=== PATIENT | female | born 1995 | race Caucasian/White ===

== ENCOUNTER 2016-06-07 11:18 | Emergency (ER) | payer OTHER ==
[2016-06-07 12:53] VITALS: BP 103/55
--- NOTE | 2016-06-07 13:12 | UC ---
Complaint Female HPI - HPI Summary HPI Summary: The patient comes in today for: 1. Dysuria: Onset: Yesterday. Palliative/provocative: Hot pack on the stomach can help. Quality: Dysuria, and pressure. Region: Suprapubic pressure. Severity: 6/10 with urination. Time: Constant pressure. Associated symptoms: Back pain: None. Fevers: None. Urinary frequency: Present. Urinary urgency: Yes. Last UTI: 6 months ago. Recent antibiotics: None. * - History Of Current Complaint Chief Complaint: UCGU Stated Complaint: URINARY COMPLAINT Time Seen by Provider: 06/07/16 13:02 Hx Obtained From: Patient Hx Last Menstrual Period: 05/11/16 ?: No - Allergies/Home Medications Allergies/Adverse Reactions: Allergies Allergy/AdvReac Type Severity Reaction Status Date / Time No Known Allergies Allergy Verified 06/07/16 12:49 PMH/Surg Hx/FS Hx/Imm Hx Previously Healthy: No Endocrine History Of: Denies: Diabetes, Thyroid Disease, Hyperthyroidism, Hypothyroidism, Dyslipidemia Cardiovascular History Of: Reports: Cardiac Disorders - VSD Denies: Hypertension, Pacemaker/ICD, Myocardial Infarction, Congestive Heart Failure, Atrial Fibrillation, Deep Vein Thrombosis, Bleeding Disorders Respiratory History Of: Denies: COPD, Asthma, Bronchitis, Pneumonia, Pulmonary Embolism GI/ History Of: Denies: Gastroesophageal Reflux, Ulcer, Gastrointestinal Bleed, Gall Bladder Disease, Kidney Stones, Diverticulitis, Renal Disease, Urosepsis Neurological History Of: Denies: TIA, CVA, Dementia, Seizures, Migraine Psychological History Of: Reports: Anxiety - On no medications. Denies: Depression, Bipolar Disorder, Schizophrenia, Post Traumatic Stress Disorder Cancer History Of: Denies: Lung Cancer, Colorectal Cancer, Breast Cancer, Prostate Cancer, Cervical Cancer Other History Of: Negative For: HIV, Hepatitis B, Hepatitis C, Anticoagulant Therapy - Surgical History Surgical History: Yes Surgery Procedure, Year, and Place: TUBES EARS. RIGHT WRIST FX REPAIR - Family History Known Family History: Negative: Cardiac Disease, Hypertension - Social History Occupation: Employed Full-time Alcohol Use: Rare Substance Use Type: None Smoking Status (MU): Never Smoked Tobacco - Immunization History Most Recent Influenza Vaccination: February 2016 Review of Systems Constitutional: Negative Skin: Negative Eyes: Negative ENT: Negative Respiratory: Negative Cardiovascular: Negative Gastrointestinal: Abdominal Pain Genitourinary: Dysuria, Frequency, Urgency All Other Systems Reviewed And Are Negative: Yes Physical Exam Triage Information Reviewed: Yes Appearance: Well-Appearing, No Pain Distress, Well-Nourished Vital Signs: Initial Vital Signs Temp 98.7 F 06/07/16 12:46 Pulse 70 06/07/16 12:46 Resp 16 06/07/16 12:46 BP 103/55 06/07/16 12:46 Pulse Ox 100 06/07/16 12:46 Vital Signs Reviewed: Yes Eyes: Positive: Conjunctiva Clear. Negative: Discharge ENT: Positive: Hearing grossly normal. Negative: Pharyngeal erythema, Nasal congestion, Nasal drainage, TM bulging, TM dull, TM red, Tonsillar swelling, Tonsillar exudate Dental: Negative: Gross Decay/Caries @, Dental Fracture @ Neck: Positive: Supple, Nontender, No Lymphadenopathy. Negative: Nuchal Rigidity Respiratory: Positive: Chest non-tender, Lungs clear, No respiratory distress, No accessory muscle use. Negative: Crackles, Wheezing Cardiovascular: Positive: RRR, No Murmur Abdomen Description: Positive: No Organomegaly, Soft. Negative: Nontender - Very mild suprapubic tenderness., CVA Tenderness (R), CVA Tenderness (L), Distended, Guarding, Peritoneal Signs, Pulsatile Mass Musculoskeletal: Positive: Strength Intact, ROM Intact, No Edema Neurological: Positive: Alert, Muscle Tone Normal Psychological: Positive: Age Appropriate Behavior, Consolable Skin: Negative: rashes, breakdown Complaint Female Dx - Differential Dx/Diagnosis Differential Diagnosis/HQI/PQRI: Renal Colic, Urinary Tract Infection Provider Diagnoses: Urinary tract infection. Discharge - Discharge Plan Condition: Stable Disposition: HOME Patient Education Materials: Urinary Tract Infection in Women (ED) Referrals: No Primary Care Phys,NOPCP [Primary Care Provider] - 1 Week (Please see your primary care provider in about a week. If you don't have a primary care provider, please reference the included sheet of local provider. If you get worse, please be seen sooner.)
== END 2016-06-07 13:27 | disposition home or self-care (01) ==
LOC: UCCORT 11:18
DX: N39.0 Urinary tract infection, site not specified (principal)
CPT/HCPCS: 81025; 87086; 99212; G0463

== ENCOUNTER 2016-07-06 16:01 | Emergency (ER) | payer OTHER ==
[2016-07-06 16:24] VITALS: BP 119/73
--- NOTE | 2016-07-06 16:34 | UC ---
Throat Pain/Nasal Jony HPI - HPI Summary HPI Summary: complaint of sore throat and headache that started today headche worsened and work today- headache in entire head- photphiobic - nausea fever started today denies cough ,runny nose, ear pain feels nauseated - able to drink fluids took 600 mg of ibuprofen approx 4:00 without relief works as a tech in the ED - History of Current Complaint Chief Complaint: UCGeneralIllness Stated Complaint: HEADACHE/FEVER Time Seen by Provider: 07/06/16 16:26 Hx Obtained From: Patient Hx Last Menstrual Period: 06/10/16 - Allergies/Home Medications Allergies/Adverse Reactions: Allergies Allergy/AdvReac Type Severity Reaction Status Date / Time No Known Allergies Allergy Verified 07/06/16 16:23 Home Medications: Home Medications Ibuprofen TAB* [Motrin TAB* 600 MG] 600 mg PO Q8H PRN 07/06/16 [History Confirmed 07/06/16] PMH/Surg Hx/FS Hx/Imm Hx Previously Healthy: Yes Endocrine History Of: Denies: Diabetes, Thyroid Disease, Hyperthyroidism, Hypothyroidism, Dyslipidemia Cardiovascular History Of: Reports: Cardiac Disorders - VSD Denies: Hypertension, Pacemaker/ICD, Myocardial Infarction, Congestive Heart Failure, Atrial Fibrillation, Deep Vein Thrombosis, Bleeding Disorders Respiratory History Of: Denies: COPD, Asthma, Bronchitis, Pneumonia, Pulmonary Embolism GI/ History Of: Denies: Gastroesophageal Reflux, Ulcer, Gastrointestinal Bleed, Gall Bladder Disease, Kidney Stones, Diverticulitis, Renal Disease, Urosepsis Neurological History Of: Denies: TIA, CVA, Dementia, Seizures, Migraine Psychological History Of: Reports: Anxiety - On no medications. Denies: Depression, Bipolar Disorder, Schizophrenia, Post Traumatic Stress Disorder Cancer History Of: Denies: Lung Cancer, Colorectal Cancer, Breast Cancer, Prostate Cancer, Cervical Cancer Other History Of: Negative For: HIV, Hepatitis B, Hepatitis C, Anticoagulant Therapy - Surgical History Surgical History: Yes Surgery Procedure, Year, and Place: TUBES EARS. RIGHT WRIST FX REPAIR - Family History Known Family History: Negative: Cardiac Disease, Hypertension, Diabetes - Social History Occupation: Employed Full-time Lives: With Family Alcohol Use: Rare Substance Use Type: None Smoking Status (MU): Never Smoked Tobacco - Immunization History Most Recent Influenza Vaccination: February 2016 Review of Systems Constitutional: Fever Skin: Negative Eyes: Negative ENT: Sore Throat Respiratory: Negative Cardiovascular: Negative Gastrointestinal: Negative Genitourinary: Negative Motor: Negative Neurovascular: Negative Musculoskeletal: Negative Neurological: Negative Psychological: Negative All Other Systems Reviewed And Are Negative: Yes Physical Exam Triage Information Reviewed: Yes Appearance: Well-Nourished, Ill-Appearing, Pain Distress Vital Signs: Initial Vital Signs Temp 102.2 F 07/06/16 16:20 Pulse 122 07/06/16 16:20 Resp 18 07/06/16 16:20 BP 119/73 07/06/16 16:20 Pulse Ox 100 07/06/16 16:20 Vital Signs Reviewed: Yes Eyes: Positive: Conjunctiva Clear, Other: - PERRL, EOMI ENT: Positive: Pharyngeal erythema, Tonsillar swelling, Tonsillar exudate. Negative: Nasal congestion, Nasal drainage Neck: Positive: Enlarged Nodes @ - cervical lymph nodes Respiratory: Positive: Lungs clear, Normal breath sounds, No respiratory distress, No accessory muscle use Cardiovascular: Positive: Pulses Normal, Brisk Capillary Refill, Tachycardia, Murmur:Sys:Grade _?_/ - 4 Abdomen Description: Positive: Nontender, No Organomegaly, Soft. Negative: CVA Tenderness (R), CVA Tenderness (L), Distended, Guarding Bowel Sounds: Positive: Present Musculoskeletal: Positive: No Edema Neurological: Positive: Alert Psychological Exam: Normal Skin Exam: Normal Throat Pain/Nasal Course/Dx - Differential Dx/Diagnosis Differential Diagnosis/HQI/PQRI: Influenza, Pharyngitis, Tonsillitis Provider Diagnoses: strep pharyngitis Discharge - Discharge Plan Condition: Stable Disposition: HOME Prescriptions: Penicillin VK TAB 500 MG(NF) [Penicillin VK 500 mg Tab(NF)] 500 mg PO TID #30 tab Forms: *Work Release Referrals: No Primary Care Phys,NOPCP [Primary Care Provider] - [facility] [Outside] Additional Instructions: STREPTOCOCCAL PHARYNGITIS (Strep Throat) What is Strep Throat? Strep throat is an infection of the throat and/or tonsils caused by Streptococcus bacteria. Strep throat is contagious and can be passed from one person to another through coughing and sneezing. Infections that are caused by bacteria require antibiotics to be cured. You remain contagious until you have taken antibiotics for at least 24 hours. Symptoms Might Include: Pain in the throat area Swelling of the glands in the neck Pain with swallowing Fever Fatigue Ear pain White spots on your tonsils (caused by pus) Treatment Recommendations: An antibiotic may have been prescribed. The antibiotic should be taken until it is completely gone, even if you feel better. If you stop the antibiotic early , you may not cure the infection completely. Gargle with warm saltwater (place 1 tsp. of salt in a large glass of warm water ) every 3 to 4 hours. Take acetaminophen (Tylenol, Tempra) for pain and fever. Drink lots of fluids. Do not smoke. Use throat lozenges (Cepostat, [place], etc.) or suck on hard candy for temporary relief of the pain of swallowing. Dispose of used tissues immediately. Cover your mouth when coughing or sneezing. Wash hands frequently. Call Your Doctor or Return Here IF: Your symptoms do not improve within 2 days or you become worse. You have a fever over 101.0 F orally. You are unable to swallow liquids or saliva. You are drooling. You develop trouble breathing. You develop a rash. You develop a stiff neck. You develop pain in your chest. You develop any symptoms that are new or that concern you
[2016-07-06] MEDS ORDERED: Acetaminophen TAB* 325 MG PO ONE (17:10)
== END 2016-07-06 17:23 | disposition home or self-care (01) ==
LOC: UCCORT 16:01
DX: J02.0 Streptococcal pharyngitis (principal)
CPT/HCPCS: 87651; 99212; A9270-GY; G0463

== ENCOUNTER 2016-08-11 13:36 | Emergency (ER) | payer OTHER ==
[2016-08-11 14:52] VITALS: BP 104/58
--- NOTE | 2016-08-11 15:12 | UC ---
Complaint Female HPI - HPI Summary HPI Summary: dysuria and lower abdominal fullness for 2 days. did take an Azo last night. - History Of Current Complaint Chief Complaint: UCGU Stated Complaint: URINARY COMPLAINT Time Seen by Provider: 08/11/16 14:34 Hx Obtained From: Patient Hx Last Menstrual Period: 08/07/16 ?: No Onset/Duration: Sudden Onset, Lasting Days Timing: Constant Severity Initially: Moderate Severity Currently: Moderate Character: Burning Aggravating Factor(s): Urination - Allergies/Home Medications Allergies/Adverse Reactions: Allergies Allergy/AdvReac Type Severity Reaction Status Date / Time No Known Allergies Allergy Verified 08/11/16 14:40 PMH/Surg Hx/FS Hx/Imm Hx Previously Healthy: Yes Endocrine History Of: Denies: Diabetes, Thyroid Disease, Hyperthyroidism, Hypothyroidism, Dyslipidemia Cardiovascular History Of: Reports: Cardiac Disorders - VSD Denies: Hypertension, Pacemaker/ICD, Myocardial Infarction, Congestive Heart Failure, Atrial Fibrillation, Deep Vein Thrombosis, Bleeding Disorders Respiratory History Of: Denies: COPD, Asthma, Bronchitis, Pneumonia, Pulmonary Embolism GI/ History Of: Denies: Gastroesophageal Reflux, Ulcer, Gastrointestinal Bleed, Gall Bladder Disease, Kidney Stones, Diverticulitis, Renal Disease, Urosepsis Neurological History Of: Denies: TIA, CVA, Dementia, Seizures, Migraine Psychological History Of: Reports: Anxiety - On no medications. Denies: Depression, Bipolar Disorder, Schizophrenia, Post Traumatic Stress Disorder Cancer History Of: Denies: Lung Cancer, Colorectal Cancer, Breast Cancer, Prostate Cancer, Cervical Cancer Other History Of: Negative For: HIV, Hepatitis B, Hepatitis C, Anticoagulant Therapy - Surgical History Surgical History: Yes Surgery Procedure, Year, and Place: TUBES EARS. RIGHT WRIST FX REPAIR - Family History Known Family History: Negative: Cardiac Disease, Hypertension, Diabetes - Social History Alcohol Use: Rare Substance Use Type: None Smoking Status (MU): Never Smoked Tobacco - Immunization History Most Recent Influenza Vaccination: February 2016 Review of Systems Constitutional: Negative Skin: Negative Eyes: Negative ENT: Epistaxis Respiratory: Negative Cardiovascular: Negative Gastrointestinal: Abdominal Pain Genitourinary: Dysuria, Frequency, Urgency Motor: Negative Neurovascular: Negative Musculoskeletal: Negative Neurological: Negative Psychological: Negative All Other Systems Reviewed And Are Negative: Yes Physical Exam Triage Information Reviewed: Yes Appearance: Well-Appearing, Well-Nourished, Pain Distress Vital Signs: Initial Vital Signs Temp 98.3 F 08/11/16 14:41 Pulse 85 08/11/16 14:41 Resp 16 08/11/16 14:41 BP 104/58 08/11/16 14:41 Pulse Ox 100 08/11/16 14:41 Vital Signs Reviewed: Yes Eye Exam: Normal Eyes: Positive: Conjunctiva Clear ENT Exam: Normal ENT: Positive: Normal ENT inspection, Hearing grossly normal, Pharynx normal, TMs normal Dental Exam: Normal Neck exam: Normal Neck: Positive: Supple, Nontender, No Lymphadenopathy Respiratory Exam: Normal Respiratory: Positive: Chest non-tender, Lungs clear, Normal breath sounds Cardiovascular Exam: Normal Cardiovascular: Positive: RRR, No Murmur, Pulses Normal Abdominal Exam: Normal Abdomen Description: Positive: Nontender, No Organomegaly, Soft Bowel Sounds: Positive: Present Musculoskeletal Exam: Normal Musculoskeletal: Positive: Strength Intact, ROM Intact, No Edema Complaint Female Dx - Course Course Of Treatment: hx obtained, exam performed, meds reviewed, educated on prevention of UTI, meds prescribed. - Differential Dx/Diagnosis Differential Diagnosis/HQI/PQRI: Pelvic Inflammatory Disease, Ureteral Stone, Urinary Tract Infection Provider Diagnoses: UTI Discharge - Discharge Plan Condition: Stable Disposition: HOME Prescriptions: Cephalexin CAP* [Keflex CAP*] 500 mg PO BID #14 cap Patient Education Materials: Urinary Tract Infection in Women (ED) Additional Instructions: Take the medication as prescirbed. Increase your fluid intake and follow up if symptoms worsen.
== END 2016-08-11 15:23 | disposition home or self-care (01) ==
LOC: UCCORT 13:36
DX: N39.0 Urinary tract infection, site not specified (principal); Q21.0 Ventricular septal defect
CPT/HCPCS: 81003; 87086; 99212; G0463

== ENCOUNTER 2018-06-13 11:08 | Emergency (ER) | payer BC, OTHER ==
[2018-06-13 11:36] VITALS: BP 120/59
--- NOTE | 2018-06-13 11:52 | UC ---
Throat Pain/Nasal Jony HPI - HPI Summary HPI Summary: 23-year-old female presents with 4 day history of sore throat. Denies fever, chills, nasal congestion, ear pain, cough, chest pain, shortness of breath, abdominal pain, nausea, vomiting, or diarrhea. - History of Current Complaint Chief Complaint: UCGeneralIllness Stated Complaint: ST,SHEETS Time Seen by Provider: 06/13/18 11:42 Hx Obtained From: Patient Hx Last Menstrual Period: 05/20/18 Pain Intensity: 2 - Allergies/Home Medications Allergies/Adverse Reactions: Allergies Allergy/AdvReac Type Severity Reaction Status Date / Time No Known Allergies Allergy Verified 06/13/18 11:33 Home Medications: Home Medications Ibuprofen TAB* [Motrin TAB* 600 MG] 600 mg PO Q6H PRN 06/13/18 [History Confirmed 06/13/18] PMH/Surg Hx/FS Hx/Imm Hx Previously Healthy: Yes Cardiovascular History: Other - Ventricular septal defect Other History Of: Negative For: HIV, Hepatitis B, Hepatitis C, Anticoagulant Therapy - Surgical History Surgical History: Yes Surgery Procedure, Year, and Place: TUBES EARS. RIGHT WRIST FX REPAIR. c- section 2017 - Family History Known Family History: Positive: Non-Contributory - Social History Occupation: Employed Full-time Lives: With Family Alcohol Use: Rare Substance Use Type: None Smoking Status (MU): Never Smoked Tobacco - Immunization History Most Recent Influenza Vaccination: February 2016 Review of Systems All Other Systems Reviewed And Are Negative: Yes Constitutional: Negative: Fever, Chills Eyes: Negative: Drainage, Eye Redness ENT: Positive: Sore Throat. Negative: Ear Ache, Nasal Discharge, Sinus Congestion, Sinus Pain/Tenderness Respiratory: Negative: Shortness Of Breath, Cough Cardiovascular: Negative: Palpitations, Chest Pain Gastrointestinal: Negative: Abdominal Pain, Vomiting, Diarrhea, Nausea Genitourinary: Positive: Negative Musculoskeletal: Positive: Negative Neurological: Positive: Negative Is Patient Immunocompromised?: No Physical Exam - Summary Physical Exam Summary: GENERAL APPEARANCE: Well developed, well nourished, alert and cooperative, and appears to be in no acute distress. EYES: Conjunctiva clear. No drainage. Vision is grossly intact. EARS: External auditory canals and tympanic membranes clear, hearing grossly intact. NOSE: No nasal discharge. THROAT: Pharyngeal erythema with tonsilar inflammation, swelling, exudate, or lesions. Oral cavity normal. Teeth and gingiva in good general condition. NECK: Neck supple, non-tender without lymphadenopathy. CARDIAC: Pansystolic murmur. Rhythm is regular. There is no peripheral edema, cyanosis or pallor. Extremities are warm and well perfused. Capillary refill is less than 2 seconds. LUNGS: Clear to auscultation without rales, rhonchi, wheezing or diminished breath sounds. ABDOMEN: Positive bowel sounds. Soft, nondistended, nontender. No guarding or rebound. No masses or hepatosplenomegally. MUSKULOSKELETAL: ROM intact to all extremities. No joint erythema or tenderness. Normal muscular development. Normal gait. SKIN: Skin normal color, texture and turgor with no lesions or eruptions. Triage Information Reviewed: Yes Vital Signs: Initial Vital Signs Temp 98.2 F 06/13/18 11:33 Pulse 84 06/13/18 11:33 Resp 18 06/13/18 11:33 BP 120/59 06/13/18 11:33 Pulse Ox 100 06/13/18 11:33 Vital Signs Reviewed: Yes Diagnostics - Laboratory Diagnostic Studies Completed/Ordered: Rapid strep negative Throat Pain/Nasal Course/Dx - Course Course Of Treatment: 23-year-old female presents with 4 day history of sore throat. Denies fever, chills, nasal congestion, ear pain, dysphagia, cough, chest pain, shortness of breath, abdominal pain, nausea, vomiting, or diarrhea. Afebrile. Vital signs stable. Exam reveals a thin adult female in no acute distress with some mild pharyngeal erythema without tonsillar edema or exudate. Rapid strep was negative. Recommending symptomatic treatment for a viral pharyngitis. She is to follow-up with her primary care provider in 7 days if symptoms do not improve. Anticipatory guidance warning symptoms were reviewed with the patient. Verbalizes understanding and agrees with plan of care - Differential Dx/Diagnosis Differential Diagnosis/HQI/PQRI: Mononucleosis, Pharyngitis, Tonsillitis, URI Provider Diagnosis: Viral pharyngitis Discharge - Sign-Out/Discharge Documenting (check all that apply): Patient Departure All imaging exams completed and their final reports reviewed: No Studies - Discharge Plan Condition: Stable Disposition: HOME Patient Education Materials: Pharyngitis (ED) Referrals: Karo Tovar MD [Primary Care Provider] - 7 Days (If no improvement.) Additional Instructions: Your rapid strep test in the clinic today was negative. Your symptoms are likely from a viral infection. Viral infections do not respond to antibiotics and are limited to the treatment of symptoms. Viral infections typically run their course in 7-10 days. Drink plenty of fluids to avoid dehydration especially if you are running any fever. Use salt water gargles several times a day. Take over the counter acetaminophen (Tylenol) or ibuprofen (Advil, Motrin) according to directions as needed for pain or fever. You may also use Chloraseptic spray or Cepacol lonzenges according to directions which contain a numbing medication and can provide some temporary relief from your sore throat. Return here or follow up with your primary care provider in 7 days if symptoms persist. Seek immediate medical attention in the emergency room if you have fever greater than 100.5 F despite taking acetaminophen or ibuprofen, are unable to swallow or develop drooling, are unable to open your mouth fully, are unable to eat or drink, have pain that is not relieved with over the counter pain medication, or have any difficulty breathing. - Billing Disposition and Condition Condition: STABLE Disposition: Home
== END 2018-06-13 12:06 | disposition home or self-care (01) ==
LOC: UCCORT 11:08
DX: J02.8 Acute pharyngitis due to other specified organisms (principal)
CPT/HCPCS: 87651; 99211; G0463

== ENCOUNTER 2018-10-20 11:40 | Emergency (ER) | payer BC ==
--- OUTSIDE RECORDS SUMMARY | 2018-10-20 11:49 | XMS REPORT | Continuity of Care Document ---
:1995 External Reference #:[id number] Author Name Karo Tovar MD, PHD Address [address] [facility], [address] [place] [address] Care Team Providers Name Role Phone Karo Tovar MD, PHD Care Team Information Coronary Clinical Specialist Unavailable Karo Tovar MD, PHD Primary Care Physician Unavailable Payers Date Identification Numbers Payment Provider Subscriber Policy Number: [id number] Rileyus Lorin Alex PayID: [id number] [address] [address] [place] [address] Problems Active Problems Provider Date Closed fracture of scaphoid bone of Timothy Hughes MD, FACS Onset: 2012 wrist Sprain of wrist Timothy Hughes MD, FACS Onset: 08/10/2012 Tinea maximusis Karo Tovar MD, PHD Onset: 09/23/2017 Refractory migraine Karo Tovar MD, PHD Onset: 09/23/2017 Ventricular septal defect Karo Tovar MD, PHD Onset: 09/23/2017 Heart murmur Karo Tovar MD, PHD Onset: 09/23/2017 Family History Date Family Member(s) Observation Comments Father Heart Murmur : (age 1 First Sister due to Heart Month) Disease Second Sister Bi-cuspid vavle Paternal Grandfather Diabetes Mellitus Type 2 Paternal Grandfather Hypertension Maternal Grandfather due to Heart () - dies at Attack age 48 Maternal Grandfather due to Alcoholic () Maternal Grandmother Chronic Obstructive Pulmonary Disease (COPD) Maternal Grandmother Hypertension Social History Type Date Description Comments Sex Unknown Lives With Significant Other Diet Patient follows no dietary restrictions Occupation Nurse Tobacco Use Start: Unknown Never Smoked Cigarettes Smoking Status Reviewed: 10/18/18 Never Smoked Cigarettes ETOH Use Denies alcohol use Tobacco Use Start: Unknown Patient does not smoke Recreational Drug Use Denies Drug Use Allergies, Adverse Reactions, Alerts Description No Known Drug Allergies Medications Active Medications SIG Qnty Indications Ordering Provider Date Doxycycline 1 cap by mouth 21caps M46.84 Karo Tovar, 10/18/2018 Monohydrate twice a day , PHD 100mg before meals Capsules D3 Maximum Strength 1 cap by mouth 90caps F41.9 Karo Tovar, 2018 every day with , PHD 5000Unit Capsules food Nac 600 1 cap by mouth 90caps F41.9 Karo Tovar, 09/29/2018 600mg Capsules three times a day , PHD after meals Excedrin Migraine 1 tab by mouth 30tabs G43.919 Karo Tovar, 2017 first sign of MD PHD [phone] Tablets migraine Pain Reliever 2 by mouth every Unknown 325mg 4 hours as needed Tablets History Medications Bactrim DS 1 tab by mouth 14tabs Karo Tovar, 09/01/2018 - 800-160mg twice a day MD PHD 09/29/2018 Tablets Diflucan 1 tab oral for 1tabs Karo Tovar, 09/01/2018 - 150mg Tablets yeast overgrowth. MD PHD 09/29/2018 repeat in 1 week if needed. Colace 1 by mouth daily 60caps Karo Tovar, 09/23/2017 - 100mg Capsules and can take MD PHD 09/29/2018 twice a day as needed Lyza 1 by mouth every 28tabs Karo Tovar, 09/23/2017 - 0.35mg Tablets day MD PHD 09/29/2018 Ketoconazole 4 ml apply to 120gm B35.3 Karo Tovar, 09/23/2017 - 2% Cream affected area , PHD 09/29/2018 twice a day No Active Medications Unknown 11/30/2016 - 11/30/2016 Advil Unknown - 200mg Tablets Unknown Iron 1 tabl by mouth Unknown - 325(65Fe) mg daily 09/29/2018 Tablets Complete 1 by mouth once a Unknown - day 09/29/2018 14-0.4mg Tablets Vital Signs Date Vital Result Comment 10/18/2018 3:47pm BP Systolic 106 mmHg BP Diastolic 68 mmHg Body Temperature 99.2 F Heart Rate 70 /min Respiratory Rate 18 /min Height 62 inches 5'2" Weight 141.00 lb BMI (Body Mass Index) 25.8 kg/m2 BSA (Body Surface Area) 1.65 m2 [place] body weight in kilograms 50 kg O2 % BldC Oximetry 98 % 09/29/2018 4:29pm BP Systolic 124 mmHg BP Diastolic 85 mmHg Body Temperature 99.5 F Heart Rate 85 /min Respiratory Rate 18 /min Height 62 inches 5'2" Weight 139.00 lb BMI (Body Mass Index) 25.4 kg/m2 BSA (Body Surface Area) 1.64 m2 [place] body weight in kilograms 50 kg O2 % BldC Oximetry 98 % 09/23/2017 1:33pm BP Systolic 112 mmHg BP Diastolic 70 mmHg Body Temperature 98.4 F Heart Rate 75 /min Respiratory Rate 16 /min Height 62 inches 5'2" Weight 134.25 lb BMI (Body Mass Index) 24.6 kg/m2 BSA (Body Surface Area) 1.61 m2 [place] body weight in kilograms 50 kg 11/30/2016 8:57am BP Systolic Sitting Right Arm 102 mmHg BP Diastolic Sitting Right Arm 68 mmHg Heart Rate 64 /min Respiratory Rate 16 /min Height 62 inches 5'2" Weight 159.00 lb BMI (Body Mass Index) 29.1 kg/m2 BSA (Body Surface Area) 1.73 m2 [place] body weight in kilograms 50 kg 07/28/2012 8:47am BP Systolic Sitting Left Arm 118 mmHg BP Diastolic Sitting Left Arm 68 mmHg Height 62 inches 5'2" Weight 122.00 lb BMI (Body Mass Index) 22.3 kg/m2 Height Percentile 19 % Weight Percentile 44th 06/13/2009 9:09am Height 62 inches 5'2" Weight 121.00 lb BMI (Body Mass Index) 22.1 kg/m2 Height Percentile 23 % Weight Percentile 60th Results Test Date Facility Test Result H/L Range Note HPV High 09/29/2018 [facility] HPV High Risk Results on file 1, 2 Risk - Alt [address] [place] [address] [phone] CBC 09/29/2018 [facility] White Blood 7.0 K/uL N 3.1-10.7 W/Automated [address] [place] [address] [phone] Red Blood Count 4.14 M/uL N 3.90-5.40 Hemoglobin 12.0 gm/dL N 11.6-15.8 Hematocrit 35.2 % Low 36.0-46.1 Mean Cell Volume 85.0 fl N 80.9-99.0 Mean Corpuscular HGB 29.0 pg N 25.9-32.7 Mean Corpuscular HGB Conc 34.1 g/dL N 30.8-34.3 Platelet Count 292 K/uL N 155-360 Red Cell Distri Width SD 39.8 fl N 36-47 Red Cell Distri Width %CV 12.9 % N 11.7-14.4 Mean Platelet Volume 8.9 fl N 8.9-12.4 Neut% 55.6 % N 40.4-72.8 Lymph % 36.4 % N 20.0-42.0 Slope % 6.9 % N 4.3-13.2 Eo% 0.4 % N 0.0-6.6 Bas% 0.3 % N 0.0-1.1 Immature Grans 0.4 % N 0.0-5.0 NRBC % 0.0 /100WBC < 10/ 100 WBC Neut# 3.87 K/uL N 1.8-7.0 Lymph # 2.53 K/uL N 1.0-4.0 Slope # 0.48 K/uL N 0.3-0.9 Eos # 0.03 K/uL N 0.0-0.5 Baso # 0.02 K/uL N 0.0-0.1 Immature Grans Absolute 0.03 K/uL NRBC # 0.00 K/uL Vitamin B12 And 09/29/2018 [facility] Vitamin B12 580 pg/mL N 193-[address] [place] [address] [phone] Folic Acid 14.4 ng/mL N 3.1-17.5 Laboratory test 09/29/2018 [facility] Thyroid Stim 1.00 uIU/mL N 0.30-4.[address] [place] [address] [phone] Free T4 0.78 ng/dL N 0.76-1.46 Vitamin D,25-Hydroxy 26.4 ng/mL Low 30.0-100.0 3 Sedimentation Rate 3 mm/hr N 2-40 4 Chlmaydia/GC/Trichomonas 09/29/2018 [facility] Chlamydia NEGATIVE Negative PCR [address] trachomatis, [place] [address] PCR [phone] Neisseria gonorrhoeae, PCR NEGATIVE Negative 5 Trichomonas vaginalis PCR NEGATIVE Negative Specimen Type: Genital Genital Culture W/ 09/29/2018 [facility] Gram Stain GRAM STAIN INDIC [address] <SEE NOTE> [place] [address] [phone] Gram Stain MODERATE GR POS. <SEE NOTE> 7 Gram Stain RARE GRAM VARIAB <SEE NOTE> 8 Gram Stain NO WHITE BLOOD C <SEE NOTE> 9 Genital Culture GENITAL OMER Urine Culture 09/01/2018 [facility] Urine Culture URETHRAL OMER [address] [place] [address] [phone] Quantity 10,000 - 50,000 <SEE NOTE> 11 Ua RFX Micro & Culture 09/01/2018 [facility] Urine Color YELLOW Yellow II [address] [place] [address] [phone] Urine Clarity CLOUDY Clear Urine Glucose - Dipstick NEGATIVE mg/dL Negative Urine Bilirubin - Dipstick NEGATIVE Negative Urine Ketone NEGATIVE mg/dL Negative Urine Specific [place] 1.025 N 1.010-1.030 Urine Blood NEGATIVE Negative Urine PH 5.5 Low 6.5-7.5 Urine Protein - Dipstick NEGATIVE mg/dL Negative Urine Urobilinogen - Dipstick 0.2 E.U./dL N 0.2-1.0 Urine Nitrite - Dipstick NEGATIVE Negative Urine Leuk Esterase TRACE Abnormal Negative Urine RBC 0-2 rbc/hpf 0-2 Urine WBC 0-2 wbc/hpf 0-7 Urine Epithelial Cells MODERATE /lpf None Seen 12 Urine Bacteria MODERATE Abnormal None Seen Laboratory test 06/13/2018 [facility] Laboratory Rapid Strep Negative Negative 13 finding [phone] Molecular Ua RFX Micro & 11/02/2017 [facility] Urine Color YELLOW Yellow 14 Culture II [address] [place] [address] [phone] Urine Clarity SL CLOUDY Clear Urine Glucose - Dipstick NEGATIVE mg/dL Negative Urine Bilirubin - Dipstick NEGATIVE Negative Urine Ketone NEGATIVE mg/dL Negative Urine Specific [place] 1.015 N 1.010-1.030 Urine Blood NEGATIVE Negative Urine PH 7.0 N 6.5-7.5 Urine Protein - Dipstick NEGATIVE mg/dL Negative Urine Urobilinogen - Dipstick 0.2 E.U./dL N 0.2-1.0 Urine Nitrite - Dipstick NEGATIVE Negative Urine Leuk Esterase SMALL Abnormal Negative Urine RBC 0-2 rbc/hpf 0-2 Urine WBC 2-5 wbc/hpf 0-7 Urine Epithelial Cells FEW /lpf None Seen Urine Bacteria MODERATE Abnormal None Seen Source: URINE, CLEAN CAT <SEE NOTE> 15 Urine Culture 11/02/2017 [facility] Urine Culture URETHRAL OMER [address] [place] [address] [phone] Quantity 10,000 - 50,000 <SEE NOTE> 16 CBS W/Automated Diff 11/02/2017 [facility] White Blood 7.6 K/uL N 3.1-10.[address] [place] [address] [phone] Red Blood Count 4.72 M/uL N 3.90-5.40 Hemoglobin 13.8 gm/dL N 11.6-15.8 Hematocrit 40.3 % N 36.0-46.1 Mean Cell Volume 85.4 fl N 80.9-99.0 Mean Corpuscular HGB 29.2 pg N 25.9-32.7 Mean Corpuscular HGB Conc 34.2 g/dL N 30.8-34.3 Platelet Count 228 K/uL N 155-360 Red Cell Distri Width SD 41.8 fl N 3-47 Red Cell Distri Width %CV 13.7 % N 11.7-14.4 Mean Platelet Volume 9.3 fL N 8.9-12.4 Neut% 91.5 % High 40.4-72.8 Lymph % 5.3 % Low 20.0-42.0 Slope % 2.9 % Low 4.3-13.2 Eo% 0.3 % N 0.0-6.6 Bas% 0.0 % N 0.0-1.1 Neut# 6.92 K/uL N 1.8-7.0 Lymph # 0.40 K/uL Low 1.0-4.0 [place] # 0.22 K/uL Low 0.3-0.9 Eos # 0.02 K/uL N 0.0-0.5 Baso # 0.00 K/uL N 0.0-0.1 Comprehensive Metabolic 11/02/2017 [facility] Glucose 85 mg/dL N 74-106 Panel [address] [place] [address] [phone] BUN 13 mg/dL N 7-18 Creatinine 0.8 mg/dL N 0.6-1.3 Glom Filtration Rate, Estimate >60 mL/min >60 If >60 mL/min >60 17 BUN/Creat 16.2 ratio Sodium 142 mmol/L N 136-145 Potassium 3.8 mmol/L N 3.5-5.1 Chloride 107 mmol/L N 98-107 Carbon Dioxide 25 mmol/L N 21-32 Anion Gap 10 mEq/L N 8-16 Calcium 8.9 mg/dL N 8.5-10.1 Total Protein 8.4 g/dL High 6.4-8.2 Albumin 4.4 g/dL N 3.4-5.0 Globulin 4.0 g/dL N 1.9-4.3 Alb/Glob 1.1 ratio Bilirubin,Total 0.7 mg/dL N 0.2-1.0 Sgot/Ast 14 U/L Low 15-37 18 SGPT/Alt 16 U/L N 12-78 Alkaline Phosphatase 112 U/L N 45-117 Laboratory test finding 11/02/2017 [facility] Lipase 172 U/L N 56-289 [address] [place] [address] [phone] HCG,Serum (Qualitative) NEGATIVE (Negative) CBS W/Automated 09/27/2017 [facility] White Blood 6.0 K/uL N 3.1-10.7 [address] [place] [address] [phone] Red Blood Count 4.02 M/uL N 3.90-5.40 Hemoglobin 11.4 gm/dL Low 11.6-15.8 Hematocrit 34.8 % Low 36.0-46.1 Mean Cell Volume 86.6 fl N 80.9-99.0 Mean Corpuscular HGB 28.4 pg N 25.9-32.7 Mean Corpuscular HGB Conc 32.8 g/dL N 30.8-34.3 Platelet Count 274 K/uL N 155-360 Red Cell Distri Width SD 41.9 fl N 3-47 Red Cell Distri Width %CV 13.8 % N 11.7-14.4 Mean Platelet Volume 9.1 fL N 8.9-12.4 Neut% 50.8 % N 40.4-72.8 Lymph % 42.4 % High 20.0-42.0 [place] % 6.3 % N 4.3-13.2 Eo% 0.3 % N 0.0-6.6 Bas% 0.2 % N 0.0-1.1 Neut# 3.05 K/uL N 1.8-7.0 Lymph # 2.55 K/uL N 1.0-4.0 [place] # 0.38 K/uL N 0.3-0.9 Eos # 0.02 K/uL N 0.0-0.5 Baso # 0.01 K/uL N 0.0-0.1 Laboratory test 09/27/2017 [facility] Sedimentation 11 mm/hr N 0-20 [address] [place] [place] [address] [phone] Comprehensive 09/27/2017 [facility] Glucose 67 mg/dL Low 74-106 Metabolic Panel [address] [place] [address] [phone] BUN 12 mg/dL N 7-18 Creatinine 0.7 mg/dL N 0.6-1.3 Glom Filtration Rate, Estimate >60 mL/min >60 If >60 mL/min >60 21 BUN/Creat 17.1 ratio Sodium 142 mmol/L N 136-145 Potassium 3.7 mmol/L N 3.5-5.1 Chloride 108 mmol/L High 98-107 Carbon Dioxide 27 mmol/L N 21-32 Anion Gap 7 mEq/L Low 8-16 Calcium 8.9 mg/dL N 8.5-10.1 Total Protein 7.2 g/dL N 6.4-8.2 Albumin 3.7 g/dL N 3.4-5.0 Globulin 3.5 g/dL N 1.9-4.3 Alb/Glob 1.1 ratio Bilirubin,Total 0.2 mg/dL N 0.2-1.0 Sgot/Ast 12 U/L Low 15-37 22 SGPT/Alt 13 U/L N 12-78 Alkaline Phosphatase 102 U/L N 45-117 Laboratory test 06/14/2017 [facility] Treponema Negative Negative 23, [address] [place] [address] [place] [phone] Type And Screen 06/14/2017 [facility] Patient Blood A POS N [address] Type [place], [place] [address] [phone] Antibody Screen Negative N Negative CBC 06/14/2017 [facility] White Blood Count 10.6 K/uL N 3.1-10.7 [address] [place], [place] [address] [phone] Red Blood Count 4.01 M/uL N 3.90-5.40 Hemoglobin 10.5 gm/dL Low 11.6-15.8 Hematocrit 32.7 % Low 36.0-46.1 Mean Cell Volume 81.5 fl N 80.9-99.0 Mean Corpuscular HGB 26.2 pg N 25.9-32.7 Mean Corpuscular HGB Conc 32.1 g/dL N 30.8-34.3 Platelet Count 275 K/uL N 155-360 Red Cell Distri Width %CV 15.0 % High 11.7-14.4 Mean Platelet Volume 10.4 fL N 8.9-12.4 WBC # Bld Auto 04/24/2017 N2N/CCD Import WBC # Bld Auto 8.2 3.1-10.7 Serum sodium 04/24/2017 N2N/CCD Import Serum sodium 139 136-145 measurement measurement Serum or plasma 04/24/2017 N2N/CCD Import Serum or plasma 3 *L 7-18 urea nitrogen urea nitrogen measurement measurement (mass/vo (mass/volume) Serum or plasma 04/24/2017 N2N/CCD Import Serum or plasma 1.7 Low 1.8- 2.4 magnesium magnesium measurement measurement (mass/volume (mass/volume) Serum or plasma 04/24/2017 N2N/CCD Import Serum or plasma 86 74-106 glucose measurement glucose (mass/volume) measurement (mass/volume) Serum or plasma 04/24/2017 N2N/CCD Import Serum or plasma 0.5 Low 0.6- 1.3 creatinine creatinine measurement measurement (mass/volum (mass/volume) Serum or plasma 04/24/2017 N2N/CCD Import Serum or plasma 8.0 Low 8.5- 10.1 calcium measurement calcium (mass/volume) measurement (mass/volume) Serum carbon 04/24/2017 N2N/CCD Import Serum carbon 23 21-32 dioxide measurement dioxide measurement RDW RBC Auto-Rto 04/24/2017 N2N/CCD Import RDW RBC Auto-Rto 12.0 11.7- 14.4 RDW RBC Auto 04/24/2017 N2N/CCD Import RDW RBC Auto 37.3 3-47 Potassium 04/24/2017 N2N/CCD Import Potassium 3.9 3.5-5.1 SerPl-sCnc SerPl-sCnc Neutrophils/leuk 04/24/2017 N2N/CCD Import Neutrophils/leuk 60.3 40.4- 72.8 NFr Bld Auto NFr Bld Auto Neutrophils # Bld 04/24/2017 N2N/CCD Import Neutrophils # Bld 4.94 1.8- 7.0 Auto Auto Automated blood 04/24/2017 N2N/CCD Import Automated blood 256 150-400 platelet count platelet count Automated blood 04/24/2017 N2N/CCD Import Automated blood 2.48 1.0-4.0 lymphocyte count lymphocyte count (number/volume) (number/volume) Automated blood 04/24/2017 N2N/CCD Import Automated blood 26.7 #L 36.0- 46.1 hematocrit (volume hematocrit (volume fraction) fraction) Automated blood 04/24/2017 N2N/CCD Import Automated blood 0.06 0.0-0.5 eosinophil count eosinophil count Automated blood 04/24/2017 N2N/CCD Import Automated blood 0.01 0.0-0.1 basophil count basophil count (count/volume) (count/volume) Anion Gap 04/24/2017 N2N/CCD Import Anion Gap 7 Low 8-16 SerPl-sCnc SerPl-sCnc * Miscellaneous 04/24/2017 N2N/CCD Import * Miscellaneous Test(s) studies (set) studies (set) added Automated blood 04/24/2017 N2N/CCD Import Automated blood 9.3 8.9-12.4 platelet mean platelet mean volume measurement volume measurement Automated 04/24/2017 N2N/CCD Import Automated 29.0 25.9-32.7 erythrocyte mean erythrocyte mean corpuscular corpuscular hemoglobin hemoglobin (mass per erythrocyte) Automated 04/24/2017 N2N/CCD Import Automated 33.0 30.8-34.3 erythrocyte mean erythrocyte mean corpuscular corpuscular hemoglobin hemoglobin concentration measurement (mass/volume) Monocytes/leuk NFr 04/24/2017 N2N/CCD Import Monocytes/leuk NFr 8.7 4.3- 13.2 Bld Auto Bld Auto Lymphocytes/leuk 04/24/2017 N2N/CCD Import Lymphocytes/leuk 30.2 20.0- 42.0 NFr Bld Auto NFr Bld Auto Eosinophil/leuk NFr 04/24/2017 N2N/CCD Import Eosinophil/leuk 0.7 0.0- 6.6 Bld Auto NFr Bld Auto Chloride SerPl-sCnc 04/24/2017 N2N/CCD Import Chloride 109 High 98-107 SerPl-sCnc Blood monocytes 04/24/2017 N2N/CCD Import Blood monocytes 0.71 0.3-0.9 automated count automated count (number/volume) (number/volume) Blood hemoglobin 04/24/2017 N2N/CCD Import Blood hemoglobin 8.8 Low 11.6- 15.8 measurement measurement (mass/volume) (mass/volume) Blood erythrocytes 04/24/2017 N2N/CCD Import Blood erythrocytes 3.03 Low 3.90-5.40 automated count automated count (number/volume) (number/volume) Basophils/leuk NFr 04/24/2017 N2N/CCD Import Basophils/leuk NFr 0.1 0.0- 1.1 Bld Auto Bld Auto BUN/Creat SerPl 04/24/2017 N2N/CCD Import BUN/Creat SerPl 6.0 Automated 04/24/2017 N2N/CCD Import Automated 88.1 80.9-99.0 erythrocyte mean erythrocyte mean corpuscular volume corpuscular volume TSH SerPl-aCnc 04/23/2017 N2N/CCD Import TSH SerPl-aCnc 0.81 0.30-4.20 Serum or plasma 04/23/2017 N2N/CCD Import Serum or plasma 0.2 0.2-1.0 total bilirubin total bilirubin measurement (mass/ measurement (mass/volume) Serum or plasma 04/23/2017 N2N/CCD Import Serum or plasma 7.2 6.4-8.2 protein measurement protein (mass/volume) measurement (mass/volume) Serum or plasma 04/23/2017 N2N/CCD Import Serum or plasma 0.89 0.76- 1.46 free thyroxine free thyroxine (FT4) measurement ( (FT4) measurement (mass/volume) Serum or plasma 04/23/2017 N2N/CCD Import Serum or plasma 44 26-192 creatine kinase creatine kinase measurement (enzym measurement (enzymatic activity/volume) Serum or plasma 04/23/2017 N2N/CCD Import Serum or plasma 12 Low 15-37 aspartate aspartate aminotransferase aminotransferase measure measurement (enzymatic activity/volume) Serum or plasma 04/23/2017 N2N/CCD Import Serum or plasma 111 45-117 alkaline alkaline phosphatase phosphatase measurement ( measurement (enzymatic activity/volume) Serum or plasma 04/23/2017 N2N/CCD Import Serum or plasma 2.8 Low 3.4- 5.0 albumin measurement albumin (mass/volume) measurement (mass/volume) Color Ur 04/23/2017 N2N/CCD Import Color Ur Yellow Yellow Ketones Ur 04/23/2017 N2N/CCD Import Ketones Ur Trace High Negative Strip.auto-mCnc Strip.auto-mCnc Leukocyte esterase 04/23/2017 N2N/CCD Import Leukocyte esterase Negative Negative Ur Ql Strip.auto Ur Ql Strip.auto Nitrite Ur Ql 04/23/2017 N2N/CCD Import Nitrite Ur Ql Negative Negative Strip.auto Strip.auto Prot Ur 04/23/2017 N2N/CCD Import Prot Ur Negative Negative Strip.auto-mCnc Strip.auto-mCnc Specific gravity of 04/23/2017 N2N/CCD Import Specific gravity 1.020 1.010-1.03 Urine by Automated of Urine by 0 test strip Automated test strip Urine appearance 04/23/2017 N2N/CCD Import Urine appearance Clear Clear determination determination Urine glucose 04/23/2017 N2N/CCD Import Urine glucose 250 High Negative measurement by measurement by automated test automated test strip strip (mass/volume) Urine hemoglobin 04/23/2017 N2N/CCD Import Urine hemoglobin Negative Negative detection by detection by automated test automated test strip strip Urine total 04/23/2017 N2N/CCD Import Urine total Negative Negative bilirubin detection bilirubin by automated test detection by automated test strip Urobilinogen Ur 04/23/2017 N2N/CCD Import Urobilinogen Ur 0.2 0.2-1.0 Strip-aCnc Strip-aCnc pH Ur Strip.auto 04/23/2017 N2N/CCD Import pH Ur Strip.auto 6.0 Low 6.5- 7.5 Alt SerPl-cCnc 04/23/2017 N2N/CCD Import Alt SerPl-cCnc 13 12-78 Albumin/Glob SerPl 04/23/2017 N2N/CCD Import Albumin/Glob SerPl 0.6 Fibrin D-dimer Feu 04/23/2017 N2N/CCD Import Fibrin D-dimer Feu 1.34 *H measurement in measurement in platelet poor pl platelet poor plasma (mass/volume) Globulin Ser 04/23/2017 N2N/CCD Import Globulin Ser 4.4 High 1.9-4.3 Calc-mCnc Calc-mCnc Serum or plasma 02/26/2017 N2N/CCD Import Serum or plasma 164 56-289 lipase measurement lipase measurement (enzymatic acti (enzymatic activity/volume) 1 Z01.419 F41.9 2 Hard copy of report to be sent by mail Report may be viewed in Clinical Review, or in PCI under Medical Record Forms 3 Vitamin D deficiency has been defined by the [place] of Medicine and an Endocrine Society practice guideline as a level of serum 25-OH vitamin D less than 20 ng/mL (1,2). The Endocrine Society went on to further define vitamin D insufficiency as a level between 21 and 29 ng/mL (2). 1. IOM ([place] of Medicine). 2010. Dietary reference intakes for calcium and D. [place]: The National Academies Press. 2. Emmanuel MF, Juan NC, Lisseth-Nino SHEETS, et al. Evaluation, treatment, and prevention of vitamin D deficiency: an Endocrine Society clinical practice guideline. JCEM. 2010; 96(7):1911-30. Performed at: RN - [facility] [address] [id number] Certified Activities Director: Nhi Hardy MD, Phone: [phone] 4 This result was obtained with an ESR method that is not based on the standard Westergren Method. When comparing results obtained from the traditional Westergren ESR and this method it is important to refer to the reference range for each method. Method: Capillary Photometry 5 A negative result for either C. trachomatis and/or N. gonorrhoeae does not preclued an infection because results are dependent on adequate specimen collection, absence of inhibitors, and sufficient DNA to be detected. 6 GRAM STAIN INDICATES NORMAL GENITAL OMER 7 MODERATE GR POS. BACILLI SUGGESTIVE OF LACTOBACILLUS SP. 8 RARE GRAM VARIABLE COCCOBACILLI 9 NO WHITE BLOOD CELLS 10 R30.0 11 10,000 - 50,000 CFU/mL 12 POSSIBLE UROGENITAL CONTAMINATION. 13 Adolescent Counselor: [id number] SHEETS, NAUSEA, VOMITING 15 URINE, CLEAN CATCH 16 10,000 - 50,000 CFU/mL 17 Note: Persistent reduction for 3 months or more in an eGFR <60 mL/min/1.73 m2 defines CKD. Patients with eGFR values >/=60 mL/min/1.73 m2 may also have CKD if evidence of persistent proteinuria is present. The original MDRD equation for estimated GFR is not valid for patients less than 18 years of age. Additional information may be found at www.kdoqi.org. 18 Values below the stated reference ranges of AST and ALT can be seen in normal populations. Clinical correlation is suggested. 19 G43.919 20 Method: Sediplast Modified Westergren 21 Note: Persistent reduction for 3 months or more in an eGFR <60 mL/min/1.73 m2 defines CKD. Patients with eGFR values >/=60 mL/min/1.73 m2 may also have CKD if evidence of persistent proteinuria is present. The original MDRD equation for estimated GFR is not valid for patients less than 18 years of age. Additional information may be found at www.kdoqi.org. 22 Values below the stated reference ranges of AST and ALT can be seen in normal populations. Clinical correlation is suggested. 23 CONTRACTIONS, BAD BACK PAIN 24 Performed at: [facility] [address] [id number] Certified Activities Director: Arjun Boggs MD, Phone: [phone] Procedures Date Code Description Status 06/29/2018 99162 Radiology, Wrist Complete Completed 06/29/2018 75451 Radiology, Wrist Two Views Completed 06/20/2017 04478 EKG Interpretation And Report Only Completed 11/30/2016 95190 EKG-Tracing And Report Completed 08/10/2012 97643 Radiology, Wrist Two Views Completed 07/28/2012 83963 Radiology, Wrist Complete Completed 07/28/2012 09636 Navicular fracture closed carpal scaphoid w/o manipulation Completed 02/04/2010 05962 Radiology, Wrist Two Views Completed 08/29/2009 51592 Radiology, Wrist Two Views Completed 07/18/2009 32576 Radiology, Wrist Two Views Completed 06/27/2009 52331 Radiology, Wrist Two Views Completed 06/27/2009 05775 Application of Cast short arm Completed 06/13/2009 21721 Radiology, Wrist Two Views Completed 06/07/2009 93753 Fracture distal radial-closed Completed Encounters Type Date Location Provider Dx Diagnosis Office Visit 10/18/2018 Family Medicine Karo Tovar, 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, PHD spondylopathies, thoracic region Office Visit 09/29/2018 Family Medicine Karo Tovar, Z01.419 Encntr for temple meat cutter exam 4:30p Rojas Teixeira MD, PHD (general) (routine) w/o abn findings Z39.1 Encounter for care and examination of lactating mother E55.9 Vitamin D deficiency, unspecified F41.9 Anxiety disorder, unspecified Z71.9 Counseling, unspecified Z13.21 Encounter for screening for nutritional disorder Office Visit 09/23/2017 1:00p Family Medicine Karo Tovar, B35.3 Nicole Teixeira MD, PHD G43.919 Migraine, unsp, intractable, without status migrainosus Q21.0 Ventricular septal defect R01.1 Cardiac murmur, unspecified Office Visit 11/30/2016 8:50a Cardiology Office Irene, Q21.0 Ventricular Marlyss B., septal defect PA Office Visit 08/10/2012 3:30p Orthopaedic Office Ellen, 813.44 FX Radius W/ Ulruthy Hunt MD, Lower End Closed FACS 842.00 Sprains & Strains Wrist & Hand Unspec Site V54.19 Aftercare For Healing Traumatic Fracture Of Other Bone Office Visit 02/04/2010 10:15a Orthopaedic Office Timothy Hughes V67.4 Exam Follow Up MD Marilee, FACS Treatment Healed Fracture Plan of Treatment Future Appointment(s):10/31/2018 8:30 am - Karo Tovar MD, PHD at [facility]10/18/2018 - Karo Tovar MD, PHDM46.84 Other specified inflammatory spondylopathies, thoracic regioNew Medication:Doxycycline Monohydrate 100 mg - 1 cap by mouth twice a day before mealsNew Labs:Lyme Igm ( Reflex Western Blot), Ordered: 10/18/18Sedimentation Rate, Ordered: 10/18/18CBC W/Automated Diff, Ordered: 10/18/18Comments:Suspect LYME -Could be MRSA but no prior historycould be auto-immune inflammation
--- OUTSIDE RECORDS SUMMARY | 2018-10-20 11:50 | XMS REPORT | Continuity of Care Document ---
:1995 External Reference #:[id number] Author Name Karo Tovar MD, PHD Address [address] [facility], [address] [place] [address] Care Team Providers Name Role Phone Karo Tovar MD, PHD Care Team Information Mandrel Maker Unavailable Karo Tovar MD, PHD Primary Care Physician Unavailable Payers Date Identification Numbers Payment Provider Subscriber Policy Number: [id number] Rileyus Lorin Alex PayID: [id number] [address] [address] [place] [address] Advance Directives Description No Information Available Problems Active Problems Provider Date Heart murmur Karo Tovar MD, PHD Onset: 09/23/2017 Ventricular septal defect Karo Tovar MD, PHD Onset: 09/23/2017 Refractory migraine Karo Tovar MD, PHD Onset: 09/23/2017 Tinea pedis Karo Tovar MD, PHD Onset: 09/23/2017 Sprain of wrist Timothy Hughes MD, FACS Onset: 08/10/2012 Closed fracture of scaphoid bone of Timothy Hughes MD, FACS Onset: 2012 wrist Family History Date Family Member(s) Observation Comments [...] Unknown Never Smoked Cigarettes Smoking Status Reviewed: 09/29/18 Never Smoked Cigarettes ETOH Use Denies alcohol use Tobacco Use Start: Unknown Patient does not smoke Recreational Drug Use Denies Drug Use Allergies, Adverse Reactions, Alerts Description No Known Drug Allergies Medications Active Medications SIG Qnty Indications Ordering Provider Date D3 Maximum Strength 1 cap by mouth 90caps F41.9 Karo Tovar, 2018 every day with , PHD 5000Unit Capsules food Nac 600 1 cap by mouth 90caps F41.9 Karo Tovar, 09/29/2018 600mg Capsules three times a day PHD DEIRDRE after meals Excedrin Migraine 1 tab by mouth 30tabs G43.919 Karo Tovar, 2017 first sign of PHD DEIRDRE [id number] Tablets migraine Pain Reliever 2 by mouth [...] 09/23/2017 - 100mg Capsules and can take PHD DEIRDRE 09/29/2018 twice a day as needed Lyza 1 by mouth every 28tabs Karo Tovar, 09/23/2017 - 0.35mg Tablets day MD PHD 09/29/2018 Ketoconazole 4 ml apply to 120gm B35.3 Karo Tovar, 09/23/2017 - 2% Cream affected area MD PHD 09/29/2018 twice a day No Active Medications Unknown 11/30/2016 - 11/30/2016 Advil Unknown - 200mg Tablets Unknown Iron 1 tabl by mouth Unknown - 325(65Fe) mg daily 09/29/2018 Tablets Complete 1 by mouth once a Unknown - day 09/29/2018 14-0.4mg Tablets Immunizations Description No Information Available Vital Signs Date Vital Result Comment 09/29/2018 4:29pm BP Systolic 124 mmHg BP Diastolic 85 mmHg Body Temperature 99.5 F Heart Rate 85 /min Respiratory Rate 18 /min Height 62 inches 5'2" Weight 139.00 lb BMI (Body Mass Index) 25.4 kg/m2 BSA (Body Surface Area) 1.64 m2 [place] body weight in kilograms 50 kg O2 % BldC Oximetry 98 % 09/23/2017 1:33pm BP Systolic 112 mmHg BP Diastolic 70 mmHg Body Temperature 98.4 F Heart Rate 75 /min Respiratory Rate 16 /min Height 62 inches 5'2" Weight 134.25 lb BMI (Body Mass Index) 24.6 kg/m2 BSA (Body Surface Area) 1.61 m2 [place] body weight in kilograms 50 kg 11/30/2016 8:57am BP Systolic Sitting Right Arm 102 mmHg BP Diastolic Sitting Right Arm 68 mmHg Heart Rate 64 /min Respiratory Rate 16 /min Height 62 inches 5'2" Weight 159.00 lb BMI (Body Mass Index) 29.1 kg/m2 BSA (Body Surface Area) 1.73 m2 [place] body weight in kilograms 50 kg 07/28/2012 [...] Date Facility Test Result H/L Range Note Laboratory test 09/29/2018 [facility] Thyroid Stim <pending> finding [address] [place] [address] [phone] Free T4 <pending> Vitamin D,25-Hydroxy <pending> Sedimentation Rate <pending> Urine Culture 09/01/2018 [facility] Urine Culture URETHRAL OMER [address] [place] [address] [phone] Quantity 10,000 - 50,000 <SEE NOTE> 2 Ua RFX Micro & Culture 09/01/2018 [facility] Urine Color YELLOW Yellow II [address] [place] [address] [phone] Urine Clarity CLOUDY Clear Urine Glucose - Dipstick NEGATIVE mg/dL Negative Urine Bilirubin - Dipstick NEGATIVE Negative Urine Ketone NEGATIVE mg/dL Negative Urine Specific [place] 1.025 N 1.010-1.030 Urine Blood NEGATIVE Negative Urine PH 5.5 Low 6.5-7.5 Urine Protein - Dipstick NEGATIVE mg/dL Negative Urine Urobilinogen - Dipstick 0.2 E.U./dL N 0.2-1.0 Urine Nitrite - Dipstick NEGATIVE Negative Urine Leuk Esterase TRACE Abnormal Negative Urine RBC 0-2 rbc/hpf 0-2 Urine WBC 0-2 wbc/hpf 0-7 Urine Epithelial Cells MODERATE /lpf None Seen 3 Urine Bacteria MODERATE Abnormal None Seen Laboratory test 06/13/2018 [facility] Laboratory Rapid Strep Negative Negative 4 finding [phone] Molecular Urine Culture 11/02/2017 [facility] Urine Culture URETHRAL [address] [place] [address] [phone] Quantity 10,000 - 50,000 <SEE NOTE> 6 CBS W/Automated Diff 11/02/2017 [facility] White Blood 7.6 K/uL N 3.1-10.[address] [place] [address] [phone] Red Blood Count 4.72 M/uL N 3.90-5.40 [...] 40.4-72.8 Lymph % 5.3 % Low 20.0-42.0 [place] % 2.9 % Low 4.3-13.2 Eo% 0.3 % N 0.0-6.6 Bas% 0.0 % N 0.0-1.1 Neut# 6.92 K/uL N 1.8-7.0 Lymph # 0.40 K/uL Low 1.0-4.0 [place] # 0.22 K/uL Low 0.3-0.9 Eos # 0.02 K/uL N 0.0-0.5 Baso # 0.00 K/uL N 0.0-0.1 Comprehensive Metabolic 11/02/2017 [facility] Glucose 85 mg/dL N 74-106 Panel [address] [place], [place] [id number] [phone] BUN 13 mg/dL N 7-18 Creatinine 0.8 mg/dL N 0.6-1.3 Glom Filtration Rate, Estimate >60 mL/min >60 If >60 mL/min >60 7 BUN/Creat 16.2 ratio Sodium 142 mmol/L N [...] N 0.2-1.0 Sgot/Ast 14 U/L Low 15-37 8 SGPT/Alt 16 U/L N 12-78 Alkaline Phosphatase 112 U/L N 45-117 Laboratory test finding 11/02/2017 [facility] Lipase 172 U/L N 56-289 [address] [place], [place] [address] [phone] HCG,Serum (Qualitative) NEGATIVE (Negative) Ua RFX Micro & Culture 11/02/2017 [facility] Urine Color YELLOW Yellow II [address] [place] [address] [phone] Urine Clarity SL CLOUDY Clear Urine Glucose - Dipstick NEGATIVE mg/dL Negative Urine Bilirubin - Dipstick NEGATIVE Negative Urine Ketone NEGATIVE mg/dL Negative Urine Specific [place] 1.015 N 1.010-1.030 Urine Blood NEGATIVE Negative [...] Seen Source: URINE, CLEAN CAT <SEE NOTE> 9 CBS W/Automated 09/27/2017 [facility] White Blood 6.0 K/uL N 3.1-10.7 [address] [place] [address] [phone] Red Blood Count 4.02 M/uL N 3.90-5.40 [...] 40.4-72.8 Lymph % 42.4 % High 20.0-42.0 [place] % 6.3 % N 4.3-13.2 Eo% 0.3 % N 0.0-6.6 Bas% 0.2 % N 0.0-1.1 Neut# 3.05 K/uL N 1.8-7.0 Lymph # 2.55 K/uL N 1.0-4.0 [place] # 0.38 K/uL N 0.3-0.9 Eos # 0.02 K/uL N 0.0-0.5 Baso # 0.01 K/uL N 0.0-0.1 Laboratory test 09/27/2017 [facility] Sedimentation 11 mm/hr N 0-20 [address] Rate [place], [place] [id number] [phone] Comprehensive 09/27/2017 [facility] Glucose 67 mg/dL Low 74-106 Metabolic Panel [address] [place], [place] [id number] [phone] BUN 12 mg/dL N 7-18 Creatinine 0.7 mg/dL N 0.6-1.3 Glom Filtration Rate, Estimate >60 mL/min >60 If >60 mL/min >60 12 BUN/Creat 17.1 ratio Sodium 142 mmol/L N [...] N 0.2-1.0 Sgot/Ast 12 U/L Low 15-37 13 SGPT/Alt 13 U/L N 12-78 Alkaline Phosphatase 102 U/L N 45-117 Laboratory test 06/14/2017 [facility] Treponema Negative Negative 14, [address] [place] [address] [place] [phone] Type And Screen 06/14/2017 [facility] Patient Blood A POS N [address] Type [place], [place] [id number] [phone] Antibody Screen Negative N Negative CBC 06/14/2017 [facility] White Blood Count 10.6 K/uL N 3.1-10.7 [address] [place], [place] [id number] [phone] Red Blood Count 4.01 M/uL N 3.90-5.40 Hemoglobin 10.5 gm/dL Low 11.6-15.8 Hematocrit 32.7 % Low 36.0-46.1 Mean Cell Volume 81.5 fl N 80.9-99.0 Mean Corpuscular HGB 26.2 pg N 25.9-32.7 Mean Corpuscular HGB Conc 32.1 g/dL N 30.8-34.3 Platelet Count 275 K/uL N 155-360 Red Cell Distri Width %CV 15.0 % High 11.7-14.4 Mean Platelet Volume 10.4 fL N 8.9-12.4 Monocytes/leuk NFr 04/24/2017 N2N/CCD Import Monocytes/leuk NFr 8.7 4.3- 13.2 Bld Auto Bld Auto Neutrophils # Bld 04/24/2017 N2N/CCD Import Neutrophils # Bld 4.94 1.8- 7.0 Auto Auto Neutrophils/leuk 04/24/2017 N2N/CCD Import Neutrophils/leuk 60.3 40.4- 72.8 NFr Bld Auto NFr Bld Auto Potassium 04/24/2017 N2N/CCD Import Potassium 3.9 3.5-5.1 SerPl-sCnc SerPl-sCnc RDW RBC Auto 04/24/2017 N2N/CCD Import RDW RBC Auto 37.3 3-47 RDW RBC Auto-Rto 04/24/2017 N2N/CCD Import RDW RBC Auto-Rto 12.0 11.7- 14.4 Serum carbon 04/24/2017 N2N/CCD Import Serum carbon 23 21-32 dioxide measurement dioxide measurement Serum or plasma 04/24/2017 N2N/CCD Import Serum or plasma 8.0 Low 8.5- 10.1 calcium measurement calcium (mass/volume) measurement (mass/volume) Serum or plasma 04/24/2017 [...] urea nitrogen measurement measurement (mass/vo (mass/volume) Serum sodium 04/24/2017 N2N/CCD Import Serum sodium 139 136-145 measurement measurement WBC # Bld Auto 04/24/2017 N2N/CCD Import WBC # Bld Auto 8.2 3.1-10.7 Automated blood 04/24/2017 N2N/CCD Import Automated blood [...] corpuscular corpuscular hemoglobin hemoglobin (mass per erythrocyte) Lymphocytes/leuk 04/24/2017 N2N/CCD Import Lymphocytes/leuk 30.2 20.0- [...] mean erythrocyte mean corpuscular volume corpuscular volume Automated 04/24/2017 N2N/CCD Import Automated 33.0 30.8-34.3 erythrocyte mean erythrocyte mean corpuscular corpuscular hemoglobin hemoglobin concentration measurement (mass/volume) TSH SerPl-aCnc 04/23/2017 N2N/CCD Import TSH SerPl-aCnc [...] 5.0 albumin measurement albumin (mass/volume) measurement (mass/volume) Globulin Ser 04/23/2017 N2N/CCD Import Globulin Ser 4.4 High 1.9-4.3 Calc-mCnc Calc-mCnc Fibrin D-dimer Feu 04/23/2017 N2N/CCD Import Fibrin D-dimer Feu 1.34 *H measurement in measurement in platelet poor pl platelet poor plasma (mass/volume) Albumin/Glob SerPl 04/23/2017 N2N/CCD Import Albumin/Glob SerPl 0.6 Alt SerPl-cCnc 04/23/2017 N2N/CCD Import Alt SerPl-cCnc 13 12-78 pH Ur Strip.auto 04/23/2017 N2N/CCD Import pH Ur Strip.auto 6.0 Low 6.5- 7.5 Urobilinogen Ur 04/23/2017 N2N/CCD Import Urobilinogen Ur 0.2 0.2-1.0 Strip-aCnc Strip-aCnc Urine total 04/23/2017 N2N/CCD Import Urine total Negative Negative bilirubin detection bilirubin by automated test detection by automated test strip Urine hemoglobin 04/23/2017 N2N/CCD Import Urine hemoglobin Negative Negative detection by detection by automated test automated test strip strip Urine glucose 04/23/2017 N2N/CCD Import Urine glucose 250 High Negative measurement by measurement by automated test automated test strip strip (mass/volume) Urine appearance 04/23/2017 N2N/CCD Import Urine appearance Clear Clear determination determination Specific gravity of 04/23/2017 N2N/CCD Import Specific gravity 1.020 1.010-1.03 Urine by Automated of Urine by 0 test strip Automated test strip Color Ur 04/23/2017 N2N/CCD Import Color Ur Yellow Yellow Prot Ur 04/23/2017 N2N/CCD Import Prot Ur Negative Negative Strip.auto-mCnc Strip.auto-mCnc Nitrite Ur Ql 04/23/2017 N2N/CCD Import Nitrite Ur Ql Negative Negative Strip.auto Strip.auto Leukocyte esterase 04/23/2017 N2N/CCD Import Leukocyte esterase Negative Negative Ur Ql Strip.auto Ur Ql Strip.auto Ketones Ur 04/23/2017 N2N/CCD Import Ketones Ur Trace High Negative Strip.auto-mCnc Strip.auto-mCnc Serum or plasma 02/26/2017 N2N/CCD Import Serum or plasma 164 56-289 lipase measurement lipase measurement (enzymatic acti (enzymatic activity/volume) 1 R30.0 2 10,000 - 50,000 CFU/mL 3 POSSIBLE UROGENITAL CONTAMINATION. 4 Firearms Instructor: [id number] 5 SHEETS, NAUSEA, VOMITING 6 10,000 - 50,000 CFU/mL 7 Note: Persistent reduction for 3 months or more in an eGFR <60 mL/min/1.73 m2 defines CKD. Patients with eGFR values >/=60 mL/min/1.73 m2 may also have CKD if evidence of persistent proteinuria is present. The original MDRD equation for estimated GFR is not valid for patients less than 18 years of age. Additional information may be found at www.kdoqi.org. 8 Values below the stated reference ranges of AST and ALT can be seen in normal populations. Clinical correlation is suggested. 9 URINE, CLEAN CATCH 10 G43.919 11 Method: Sediplast Modified [place] 12 Note: Persistent reduction for 3 months or more in an eGFR <60 mL/min/1.73 m2 defines CKD. Patients with eGFR values >/=60 mL/min/1.73 m2 may also have CKD if evidence of persistent proteinuria is present. The original MDRD equation for estimated GFR is not valid for patients less than 18 years of age. Additional information may be found at www.kdoqi.org. 13 Values below the stated reference ranges of AST and ALT can be seen in normal populations. Clinical correlation is suggested. 14 CONTRACTIONS, BAD BACK PAIN 15 Performed at: - [address] [id number] Livestock Dealer: Arjun Boggs MD, Phone: [phone] Procedures Date Code Description Status 06/29/2018 96479 Radiology, Wrist Complete Completed 06/29/2018 19572 Radiology, Wrist Two Views Completed 06/20/2017 45163 EKG Interpretation And Report Only Completed 11/30/2016 84174 EKG-Tracing And Report Completed 08/10/2012 17447 Radiology, Wrist Two Views Completed 07/28/2012 36522 Radiology, Wrist Complete Completed 07/28/2012 48425 Navicular fracture closed carpal scaphoid w/o manipulation Completed 02/04/2010 08998 Radiology, Wrist Two Views Completed 08/29/2009 29815 Radiology, Wrist Two Views Completed 07/18/2009 99026 Radiology, Wrist Two Views Completed 06/27/2009 15610 Radiology, Wrist Two Views Completed 06/27/2009 18713 Application of Cast short arm Completed 06/13/2009 06952 Radiology, Wrist Two Views Completed 06/07/2009 88728 Fracture distal radial-closed Completed Encounters Type Date Location Provider Dx Diagnosis Office Visit 09/23/2017 Family Medicine Karo Tovar, B35.3 Tinea pedis 1:00p Rojas Teixeira MD, PHD G43.919 Migraine, unsp, intractable, without status migrainosus Q21.0 Ventricular septal defect R01.1 Cardiac murmur, unspecified Office Visit 11/30/2016 8:50a Cardiology Office Irene, Q21.0 Ventricular Marlyss B., septal defect PA Office Visit 08/10/2012 3:30p Orthopaedic Office Ellen, 813.44 FX Radius W/ Ulna Timothy Hunt MD, Lower End Closed FACS 842.00 Sprains & Strains Wrist & Hand Unspec Site V54.19 Aftercare For Healing Traumatic Fracture Of Other Bone Office Visit 02/04/2010 10:15a Orthopaedic Office Timothy Hughes V67.4 Exam Follow Up MD Marilee, FACS Treatment Healed Fracture Plan of Treatment 09/29/2018 - Karo Tovar MD, PHDZ01.419 Encounter for gynecological examination (general) (routine)Follow up:Follow up for test results, as needed, or in 1 year.Recommendations:https://www.uspreventiveservicestaskforce.org/ Z39.1 Encounter for care and examination of lactating efsivqW70.21 Encounter for screening for nutritional oimzgyscM94.9 Vitamin D deficiency, cjlhnniqimxO03.9 Anxiety disorder, unspecifiedNew Medication:D3 Maximum Strength 5000 Unit - 1 cap by mouth every day with foodNac 600 600 mg - 1 cap by mouth three times a day after mealsComments:To help lesson mood and anxiety with neutraceuticals - long-term, will take weeks to months to show an effect often: Vitamin D - likely deficient due to chapa effect in [place]. Implicated in osteoporosis, osteopenia, fatigue, increased risk of diabetes, and depression/ seasonal affective disorder. Recommend you take 4000 to 5000 IU of Vitamin D3 daily. Can check vitamin D25 level - takes year+ to replace deficiency. Can get capsule or gummy over the counter. [place] 3 - essential fatty acid has a mild moodstabilizing effect. Good supplement for kids and aids brain development. Increases good cholesterol and helps clean plaque out of arteries, also has an anti-inflammatory effect for joints, skin, etc. recommend 1000mg of DHA +EPA daily - capsule or gummy over the counter. N-acetyl Cysteine - current studies show a an anti-agitation, improved clarity of thought effect. Biologically seems to reduce inflammation in nervous system. Studies show 1800mg to 2400mg daily safe. Improvements start at 3 weeks, continue to improve at 12 weeks of taking.Follow up:4 week follow up or sooner if needed.Z71.9 Counseling, unspecifiedComments:Discussed using control patch to help stop .
[2018-10-20 12:27] VITALS: BP 110/73
--- NOTE | 2018-10-20 12:54 | UC ---
General HPI - HPI Summary HPI Summary: 10/17, pt noted some soreness along her spine in the mid back. she self tx with IB, heat/cold with no relief. she saw her pcp on 10/18/18, who felt it looked red and raised so pt tx with Doxycycline for possible Lyme. pt took 2 doses and each caused her to have severe abdominal cramping with nausea and diarrhea the pcp did out pt cbc, ESR and Lyme so the pcp discontinued the Doxycycline. pt had it done on 10/19/18. pcp advised pt go to the ER for a CT; however, pt states that is to expensive so she came here. pt denies injury, fever and any hx IVDA. - History of Current Complaint Chief Complaint: UCBackPain Stated Complaint: MIDDLE LOWER BACK PAIN Time Seen by Provider: 10/20/18 12:47 Hx Obtained From: Patient Hx Last Menstrual Period: 10/03/18 Timing: Constant Pain Intensity: 5 Aggravating: touching area and movement. Alleviating: pt thinks the motrin may now be giving a little relief. Associated Signs & Symptoms: Positive: Back Pain, Other - no numb/weak extremities or bowel/bladder dysfunction/. Negative: Abdominal Pain, Cough, Chest Pain, Fever, SOB - Allergy/Home Medications Allergies/Adverse Reactions: Allergies Allergy/AdvReac Type Severity Reaction Status Date / Time No Known Allergies Allergy Verified 10/20/18 12:27 Home Medications: Home Medications Acetaminophen Dose 1 dose PO SEE INSTRUCTIONS PRN 10/20/18 [History Confirmed ] PMH/Surg Hx/FS Hx/Imm Hx - Additional Past Medical History Additional PMH: VSD Other History Of: Negative For: HIV, Hepatitis B, Hepatitis C, Anticoagulant Therapy - Surgical History Surgical History: Yes Surgery Procedure, Year, and Place: TUBES EARS. RIGHT WRIST FX REPAIR. c- section 2018 - Family History Known Family History: Positive: Non-Contributory - Social History Occupation: Employed Full-time Alcohol Use: Rare Substance Use Type: None Smoking Status (MU): Never Smoked Tobacco - Immunization History Most Recent Influenza Vaccination: February 2016 Vaccination Up to Date: Yes Review of Systems All Other Systems Reviewed And Are Negative: Yes Constitutional: Negative: Fever Skin: Negative: Rash Respiratory: Negative: Shortness Of Breath, Cough Cardiovascular: Negative: Palpitations, Chest Pain Gastrointestinal: Negative: Abdominal Pain Neurological: Negative: Weakness, Paresthesia, Numbness Physical Exam Triage Information Reviewed: Yes Appearance: Well-Appearing Vital Signs: Initial Vital Signs Temp 98.9 F 10/20/18 12:14 Pulse 86 10/20/18 12:14 Resp 20 10/20/18 12:14 BP 110/73 10/20/18 12:14 Pulse Ox 100 10/20/18 12:14 Vital Signs Reviewed: Yes Eyes: Positive: Conjunctiva Clear ENT: Positive: Pharynx normal, TMs normal. Negative: Nasal congestion, Nasal drainage Neck: Positive: Supple, Nontender, No Lymphadenopathy, Other: - c-spine is non tender Respiratory: Positive: Lungs clear, Normal breath sounds, No respiratory distress Cardiovascular: Positive: RRR, Pulses Normal, Murmur:Sys:Grade _?_/ - 3 Abdomen Description: Positive: Nontender, No Organomegaly, Soft. Negative: Pulsatile Mass Bowel Sounds: Positive: Present Musculoskeletal: Positive: Other: - Back: no gross deformity, swelling or rash. tender over lower half or thoracic and upper lumbar spinous processes. no paraspinal mm tenderness. ROM intact throughout. pt c/o pain with flexion. 5/5 strenght, 2+ reflexes and sensation intactx4. no saddle anesthesia. negative straight leg raises and gait is steady. Neurological: Positive: Alert Psychological: Positive: Age Appropriate Behavior Skin Exam: Normal Skin: Negative: Rashes Diagnostics - Laboratory Lab Results: out pt CBC and ESR obtained and were unremarkable. Lyme test was still pending. - Radiology No standard instances Radiology Interpretation Completed By: Radiologist - Normal radiographic appearance of the thoracic and lumbar sacral spine. Negative exam. Course/Dx - Differential Dx - Multi-Symptom Differential Diagnoses: Other - no fx or lesions on xray. cbc and esr=wnl. lyme is pending. - Diagnoses Provider Diagnosis: Back pain Discharge - Sign-Out/Discharge Documenting (check all that apply): Patient Departure All imaging exams completed and their final reports reviewed: Yes - Discharge Plan Condition: Stable Disposition: HOME Prescriptions: Cyclobenzaprine TAB* [Flexeril 10 MG TAB*] 10 mg PO TID PRN #10 tab MDD 3 PRN Reason: Pain - Back Naproxen [Naprosyn 500 mg tab] 500 mg PO BID 5 Days #10 tablet Patient Education Materials: Back Pain (ED) Forms: *Work Release Referrals: Karo Tovar MD [Primary Care Provider] - 3 Days Additional Instructions: STOP THE MOTRIN - Billing Disposition and Condition Condition: STABLE Disposition: Home
== END 2018-10-20 14:09 | disposition home or self-care (01) ==
LOC: UCCORT 11:40
DX: M54.9 Dorsalgia, unspecified (principal)
CPT/HCPCS: 72070; 72100; 81003; 99212; G0463